=== PATIENT | female | born 1960 | race Caucasian/White ===

== ENCOUNTER 2022-02-18 12:13 | Day surgery (SDC) | payer BC, SELFPAY ==
[2022-02-12 15:29] VITALS: BMI 25.5
[2022-02-18 13:27] VITALS: BP 150/73; PULSE 59; RESP 16; TEMP 36.3; O2SAT 98
--- NOTE | 2022-02-18 14:32 | HO.ANESPROP2 ---
[facility] Past Medical History Medical History Elevated cholesterol History of COVID-19 HTN (hypertension) Pre-diabetes Retinal detachment Visual impairment Surgical History Surgical History H/O colonoscopy Hx of cataract extraction Hx of detached retina repair Hx of vaginal hysterectomy Social History Social History Patient Tobacco Use Status: Never used Tobacco Use of substances other than those prescribed or required for medical reasons: No Are you DNR?: No Advance Directives: No Advance Directives Information Provided: Yes Meds Allergies Allergy/AdvReac Type Severity Reaction Status Date / Time nitrofurantoin AdvReac Intermediate mouth sores Verified 02/18/22 13:06 ondansetron AdvReac Intermediate mouth sores Verified 02/18/22 13:06 Home Medications Medication Instructions Recorded Confirmed Last Taken Type amlodipine 5 mg tablet 5 mg PO DAILY 02/12/22 02/12/22 02/18/22 07:00 History atenolol 50 mg tablet 50 mg PO DAILY 02/12/22 02/12/22 02/18/22 07:00 History lisinopril 40 mg tablet 40 mg PO DAILY 02/12/22 02/12/22 02/18/22 07:00 History Exam Exam Date and Time: February 18, 2022 1432 Height,Weight and Vital Signs: Height 5 ft 3.75 in Weight 67.1 kg Last Vital Signs Temp 97.3 F 02/18/22 13:27 Pulse 59 02/18/22 13:27 Resp 16 02/18/22 13:27 BP 150/73 H 02/18/22 13:27 Pulse Ox 98 02/18/22 13:27 O2 Del Method 02/18/22 13:27 Airway Mallampati Class: II TM Dist: >3cm Neck ROM: Full Loose/Missing/Broken Teeth: No Heart: RRR Lungs: CTA Assessment and Plan Assessment Anesthesia Assessment: Anesthesia Plan Discussed Final Anesthetic Review ASA Class: II Final Preanesthetic Review: Meds/Allgs Chart Reviewed, Consent Obtained/Reviewed and Anes Risks/Benef Reviewed Patient Risk: Low Procedure Risk: Low Anesthetic Plan Anesthetic Plan: GA Disposition: Standard PACU
--- NOTE | 2022-02-18 16:36 | HO.OPHTHAL ---
Ophthalmology Operative Note Date of Service: 02/18/22 Narrative: Diagnosis sensory exotropia. Procedures 1. Recession of right lateral rectus muscle 8 mm with release of scar tissue 2. Resection of right medial rectus muscle 6 mm with release of scar tissue. Surgeon Dr. Tonio Faith. Anesthesia general complications none. The patient was brought to the operating room placed under general anesthesia. The right eye was prepped and draped in the usual sterile ophthalmic fashion. A lid speculum was placed in the eye and a circumferential 4 clock hour incision was made approximately 5 mm behind the surgical limbus over the lateral rectus muscle.. A retinal encircling band was carefully identified and the The lateral rectus muscle was carefully dissected free of its surrounding scar tissue and away from the underlying retinal band. The muscle was secured at its insertion with a double-armed Vicryl suture and disinserted from the globe. It was reattached to a position approximately 8 mm behind its original insertion and immediately behind the retinal and circling band. Conjunctiva was closed with interrupted Vicryl sutures. A 4 clock hour incision was then made approximately 5 mm behind the surgical limbus over the medial rectus muscle. The medial rectus muscle was carefully identified and dissected free of its overlying fascial attachments surrounding scar tissue and underlying retinal band. A 6 mm resection was marked off with cautery and the resection point was secured with a double-armed Vicryl suture. The distal muscle was resected and the resection point drawn forward to a point approximately 5-6 mm behind the surgical limbus and immediately anterior to the encircling band. Conjunctiva was closed with interrupted Vicryl sutures. The patient was then awoken from general anesthesia and discharged to postoperative recovery in good condition.
[2022-02-18 16:44] VITALS: BP 125/64; PULSE 71; RESP 16; TEMP 36.3; O2SAT 95
[2022-02-18 16:49] VITALS: BP 124/67; PULSE 71; RESP 16; O2SAT 94
[2022-02-18 16:54] VITALS: BP 121/70; PULSE 74; RESP 12; O2SAT 94
[2022-02-18 16:59] VITALS: BP 126/71; PULSE 69; RESP 12; TEMP 36.2; O2SAT 96
[2022-02-18 17:14] VITALS: BP 124/70; PULSE 71; RESP 14; TEMP 36.1; O2SAT 96
== END 2022-02-18 17:30 | disposition home or self-care (01) ==
PROVIDERS: PCP Internal Medicine; Visit Provider Ophthalmology
PROC: (CPT 67312; principal; 2022-02-18 14:20)
DX: H50.111 Monocular exotropia, right eye (principal); H50.21 Vertical strabismus, right eye; I10 Essential (primary) hypertension; R73.03 Prediabetes; E78.5 Hyperlipidemia, unspecified; E66.3 Overweight; Z68.25 Body mass index [BMI] 25.0-25.9, adult; L71.9 Rosacea, unspecified; Z79.899 Other long term (current) drug therapy; Z88.8 Allergy status to other drugs, medicaments and biological substances; Z86.16 Personal history of COVID-19
CPT/HCPCS: 67312; J1885; J2250; J3010